=== PATIENT | female | born 1975 | race Caucasian/White ===

== ENCOUNTER 2019-06-21 05:31 | Observation (INO) | payer OTHER ==
[2019-06-17 16:27] VITALS: BMI 35.4
[~2019-06-21] VITALS: Ht 154.9 cm; Wt 85.0 kg
[2019-06-21] VITALS (39 sets, daily range): BP systolic 93–127; BP diastolic 53–77; PULSE 68–94; RESP 10–22; Ht 154.9 cm; Wt 85.0 kg
[2019-06-21] MEDS ORDERED: BUPIVACAINE 0.5%/EPI (SDV) 10 ML INJ ONE (07:02)
[2019-06-21] MEDS ORDERED: CEFAZOLIN 2 GM/50 ML (PMX) 50 ML IVPB SCH (08:00)
[2019-06-21] MEDS ORDERED: ONDANSETRON 4 MG INJ IV PRN (09:00)
[2019-06-21] MEDS ORDERED: FENTAnyl 50 MCG/ML VIAL IV PRN (09:00)
[2019-06-21] MEDS ORDERED: METOCLOPRAMIDE 10 MG INJ IV PRN (09:00)
[2019-06-21] MEDS ORDERED: HYDROmorphONE 1 MG/5 ML IV SYRINGE IV PRN ×2 (09:00)
[2019-06-21] MEDS ORDERED: LABETALOL HCL 20MG INJ IV PRN (09:00)
[2019-06-21] MEDS ORDERED: EPHEDrine 25 MG/5 ML SYG IV PRN (09:00)
[2019-06-21] MEDS ORDERED: OXYCODONE/ACETAMINOPHEN (5/325) TAB PO PRN (09:00)
[2019-06-21] MEDS ORDERED: MEPERIDINE 25 MG INJ IV PRN (09:00)
[2019-06-21] MEDS ORDERED: DIPHENHYDRAMINE 50 MG INJ IV PRN (09:00)
[2019-06-21] MEDS ORDERED: KETOROLAC 30 MG INJ IV PRN (10:00)
[2019-06-21] MEDS: FENTAnyl 50 MCG/ML VIAL IV PRN ×2 (10:36→11:06)
[2019-06-21] MEDS ORDERED: HYDROCODONE/APAP (5/325) TAB PO PRN (12:30)
[2019-06-21] MEDS: DEXTROSE 5%-0.9% NACL 1,000 ML IV SCH ×3 (15:33→22:53)
[2019-06-21] MEDS: KETOROLAC 15 MG INJ IV PRN (18:04)
[2019-06-22] MEDS: KETOROLAC 15 MG INJ IV PRN ×2 (01:39→09:00)
[2019-06-22 02:00] VITALS: BP 104/55; PULSE 68; RESP 18
[2019-06-22 08:00] VITALS: BP 113/67; PULSE 85; RESP 18
[2019-06-22] MEDS: DEXTROSE 5%-0.9% NACL 1,000 ML IV SCH (08:56)
[2019-06-22 14:00] VITALS: BP 127/63; PULSE 81; RESP 18
== END 2019-06-22 14:50 | disposition home or self-care (01) ==
LOC: SDS 05:31 → MERGE 07:30 → SDS 12:26 → REC 12:27 → PP2 15:45
PROVIDERS: ADMIT Obstetrics & Gynecology; ATTEND Obstetrics & Gynecology
DX: N83.8 Other noninflammatory disorders of ovary, fallopian tube and broad ligament (principal); N83.201 Unspecified ovarian cyst, right side; N73.6 Female pelvic peritoneal adhesions (postinfective); N80.1 Endometriosis of ovary
CPT/HCPCS: 49321; 49322; 58661; 88307; J1170; J1885; J2405; J3010; J7042; Z7500; Z7512; Z7610; 96360; 96361; G0378